=== PATIENT | male | born 1955 | race African-American/Black ===

== ENCOUNTER → 2024-05-26 | Day surgery (SDC) | payer MEDICARE ==
[2024-05-23 08:40] LABS: BASOPHILS # (AUTO) 0.1 (0.0-0.1); BASOPHILS % 1.3 % (0.0-1.0); EOSINOPHILS # (AUTO) 0.4 (0.0-0.4); EOSINOPHILS % 9.4 % (0.0-6.0); HEMATOCRIT 39.7 % (38.2-49.6); LYMPHOCYTES # (AUTO) 1.9 (1.0-3.2); LYMPHOCYTES % 43.2 % (18.0-39.1); MEAN CORPUSCULAR HEMOGLOBIN 33.4 pg (28-32); MEAN CORPUSCULAR HGB CONC 32.7 g/dL (31-35); MEAN CORPUSCULAR VOLUME 102.1 fL (81-99); MONOCYTES # (AUTO) 0.5 (0.2-0.8); MONOCYTES % 10.5 % (4.4-11.3); NEUTROPHILS # (AUTO) 1.6 (2.1-6.9); NEUTROPHILS % 35.4 % (38.7-80.0); PLATELET COUNT 231 x10e3/uL (140-360); RED BLOOD COUNT 3.89 x10e6/uL (4.3-5.7); RED CELL DISTRIBUTION WIDTH 11.6 % (11.7-14.4); WHITE BLOOD COUNT 4.49 x10e3/uL (4.8-10.8)
[~2024-05-26] MED LIST: ACETAMINOPHEN 1000 MG/100 ML IV ONE; ACETAMINOPHEN 1000 MG/100 ML IV PRN; ASPIRIN 325 MG TAB PO SCH; CELECOXIB 100 MG CAP PO SCH; DEXAMETHASONE SOD PHOS INJ 4 MG/ML SDV ONE; DIPHENHYDRAMINE HCL INJ 50 MG/ML VIAL IV PRN; DOCUSATE SODIUM 100 MG CAP PO PRN; EPINEPHRINE HCL 1:1000 1ML 1 MG/ML AMP ONE; FENTANYL CITRATE/PF 100MCG/2 ML INJ ONE; HYDROCODONE/APAP 5MG-325MG TAB PO PRN; HYDROCODONE/APAP 7.5MG-325MG 1 EA TAB ONE; LIDOCAINE HCL 2% LOCAL INJ 5 ML SDV VIAL INJ ONE; LOSARTAN POTASS25 MG PO; MIDAZOLAM HCL 2 MG/2 ML VIAL ONE; ONDANSETRON HCL INJ 2MG/ML 2ML 2 MG/ML VIAL IV PRN; ONDANSETRON HCL INJ 2MG/ML 2ML 2 MG/ML VIAL ONE; PROPOFOL IV EMULSION 10 MG/ML 20 ML VIAL ONE; ROPIVACAINE 0.5% 5 MG/ML 30 ML SDV ONE; ROPIVACAINE 246.25 MG, EPINEPHRINE HCL 1:1000 1ML 0.5 MG, CLONIDINE HCL 0.08 MG, KETORO... INJ ONE; SEVOFLURANE INHAL SOLN 250 ML PEN BTL ONE; SODIUM CHLORIDE 0.9% 1000ML 1,000 ML IV SCH; SODIUM CHLORIDE 0.9% 500ML 500 ML ONE; TRANEXAMIC ACID 20 ML ONE; Vancomycin IV 500 MG ONE
[2024-05-26 10:07] VITALS: TEMP 97.4
[2024-05-26] MEDS: FENTANYL CITRATE/PF 100MCG/2 ML INJ ONE (10:50)
[2024-05-26] MEDS: HYDROCODONE/APAP 7.5MG-325MG 1 EA TAB PO PRN (10:58)
[2024-05-26] MEDS: HYDRALAZINE HCL 20 MG/ML VIAL ONE (11:00)
[2024-05-26 12:45] VITALS: BP 142/82; PULSE 89; RESP 16; O2SAT 97
[2024-05-26] MEDS: DEXAMETHASONE SOD PHOS 10 MG/1 ML VIAL ONE (13:30)
[2024-05-26] MEDS: CELECOXIB 200 MG CAP ONE (13:30)
[2024-05-26] MEDS: LACTATED RINGER'S 1,000 ML ONE (13:31)
[2024-05-26] MEDS: CEFAZOLIN SODIUM 2 GM ONE (13:31)
[2024-05-26] MEDS: GABAPENTIN 300 MG CAP ONE (13:31)
== END | disposition home health service (06) ==
LOC: OR 05:59
PROVIDERS: ATTEND Specialist
DX: M16.12 Unilateral primary osteoarthritis, left hip (principal); I10 Essential (primary) hypertension; Z71.3 Dietary counseling and surveillance; Z88.0 Allergy status to penicillin; Z01.812 Encounter for preprocedural laboratory examination; Z79.899 Other long term (current) drug therapy; Z68.35 Body mass index [BMI] 35.0-35.9, adult
CPT/HCPCS: 27130; 36415; 72170; 85025; 86850; 86900; 97110; 97116; 97161; 97530; C1713 ×2; C1776 ×3; J0131; J0171; J0360; J0690; J1100 ×2; J1885; J2001; J2250; J2405; J2704; J2795; J3010; J3370; J7040; J7121